=== PATIENT | female | born 1960 | race Two or more races ===

== ENCOUNTER 2020-05-24 14:29 | Outpatient (CLI) | payer MEDICARE, MEDICAID ==
[2020-05-24] MEDS ORDERED: COLLAGENASE 5 GM TUBE UD TP ONE (15:17)
[2020-05-24 15:48] LABS: BASOPHILS # (AUTO) 0.1 /CMM (0.0-0.2); BASOPHILS % (AUTO) 1.4 % (0.0-2.0); EOSINOPHILS % (AUTO) 5.7 % (0.0-6.0); HEMATOCRIT 37 % (33-45); HEMOGLOBIN 12.2 g/dL (11.5-14.8); LYMPHOCYTES # (AUTO) 1.5 /CMM (0.8-4.8); LYMPHOCYTES % (AUTO) 37.3 % (20.0-44.0); MEAN CORPUSCULAR HGB CONC 33 g/dl (31.0-36.0); MEAN CORPUSCULAR VOLUME 94 fL (82-100); MONOCYTES # (AUTO) 0.4 /CMM (0.1-1.30); MONOCYTES % (AUTO) 9.1 % (2.0-12.0); NEUTROPHILS # (AUTO) 1.9 /CMM (1.8-8.9); NEUTROPHILS % (AUTO) 46.5 % (43.0-81.0); PLATELET COUNT (AUTO) 218 /CMM (150-450); RED BLOOD CELL COUNT(AUTO) 3.93 MIL/uL (4.0-5.2); WHITE BLOOD COUNT (AUTO) 4.1 K/uL (4.3-11.0)
[2020-05-24 16:00] LABS: ALBUMIN 3.6 g/dL (3.4-5.0); CALCIUM, SERUM 8.2 mg/dL (8.5-10.1); CREATININE 0.7 mg/dL (0.6-1.3); POTASSIUM 4.2 mmol/L (3.5-5.1)
[2020-05-24 16:02] LABS: C-REACTIVE PROTEIN 0.6 mg/dL (0.0-0.9)
== END 2020-05-24 23:59 | disposition home health service (06) ==
LOC: WOU 14:29
PROVIDERS: ATTEND Podiatrist Foot & Ankle Surgery
DX: L89.623 Pressure ulcer of left heel, stage 3 (principal); M86.172 Other acute osteomyelitis, left ankle and foot; Z98.84 Bariatric surgery status
CPT/HCPCS: 11042; 36415; 80048-TC; 82040-TC; 84134-TC; 85025-TC; 85652-TC; 86140-TC